=== PATIENT | male | born 1975 | race Caucasian/White ===

== ENCOUNTER 2017-01-30 20:19 | Inpatient (IN) | payer OTHER ==
--- NOTE | ~2017-01-30 | PN ---
Unit #: [id number] #: [id number] Patient: KHADAR HERNANDES [id number] [facility] [address] [place] [address] [id number] I MR#: [id number] NAME: KHADAR HERNANDES. ROOM: 61 Age: 41 Sex: M Admission Date: 01/30/2017 : 1975 Attending Physician: Sabas Viramontes M.D. Admitting Physician: Sabas Viramontes M.D. Primary Care Physician: Primary Care Physician Mercedes WRIGHT NOTES DATE 01/31/2017 DISCUSSION Mr. Lincoln is a 41-year-old male seen on 01/31/2017. The patient interviewed, chart reviewed. Obtained information from nursing staff. The patient was compliant and cooperative. Reported feeling sad, depressed, anxious, nervous. The patient requested for Nicorette gum. Withdrawn, isolative. Complete review of systems unremarkable. MENTAL STATUS EXAMINATION General appearance, the patient dressed casually. Attention span and concentration fair. Oriented to place and person. Mood and affect sad, dysphoric. Speech monotone. Thought process concrete. The patient denied any thoughts of harming self or others or any psychotic symptoms. Recent and remote memory poor. Insight and judgement poor. DIAGNOSES Major depressive disorder recurrent. ASSESSMENT/PLAN Advise to continue with current medication with a plan to increase Paxil to 40 mg daily continue with the other medication same. Also, advise Vistaril 50 mg q.6 h. p.r.n. and desyrel 50 mg q.h.s. p.r.n. If needed consider further adjustment of medication. Dictated by... Ze Holloway/enedelia TD: 02/02/2017 04:53 JOB #: [id number] Unit #: [id number] #: [id number] Patient: KHADAR HERNANDES [facility] PROGRESS NOTES X Sabas Viramontes MD PROGRESS NOTE
--- NOTE | ~2017-01-30 | PN ---
Unit #: [id number] #: [id number] Patient: SALAZAR HERNANDES [id number] [facility] [address] [place] [address] [id number] MR#: [id number] NAME: SALAZAR HERNANDES. ROOM: 61 Age: 41 Sex: M Admission Date: 01/30/2017 : 1975 Attending Physician: Sabas Viramontes M.D. Admitting Physician: Sabas Viramontes M.D. Primary Care Physician: Primary Care Physician No BETZAIDACE PROGRESS NOTES DATE 02/01/2017 DISCUSSION Salazar Hernandes is a 41-year-old male, seen on 02/01/2017. The patient interviewed, chart reviewed, and obtained information from the nursing staff. The patient was compliant and cooperative. Mood sad and dysphoric, flat affect, and guarded. The patient's vital signs, temperature 98.3, pulse 77, and blood pressure 106/72. The patient was participating in group, maintaining safe behavior, making progress, no side effects from medications. REVIEW OF SYSTEMS Complete review of systems unremarkable. MENTAL STATUS EXAMINATION General appearance: Patient casually dressed. Attention span and concentration, fair. Oriented to place and person. Mood and affect, sad and dysphoric. Speech, monotone. Thought process, concrete. Association, the patient denied any thoughts of harming self or others or any psychotic symptoms. Recent and remote memory, poor. Insight and judgment, poor. DIAGNOSIS Mood disorder, NOS. ASSESSMENT/PLAN Advised to continue with the current medication and therapeutic protocol and will monitor response to medication, and make further adjustment of medication. Dictated by... Ze Holloway/april TD: 02/02/2017 09:07 Unit #: [id number] #: [id number] Patient: SALAZAR HERNANDES JOB #: [id number] [facility] PROGRESS NOTES X Sabas Viramontes MD PROGRESS NOTE
--- NOTE | ~2017-01-30 | CO ---
Unit #: [id number] #: [id number] Patient: SALAZAR HERNANDES [id number] [place] [address] [id number] I MR#: [id number] NAME: SALAZAR HERNANDES. ROOM: 61 Age: 41 Sex: M Admission Date: 01/30/2017 : 1975 Attending Physician: Sabas Viramontes M.D. Primary Care Physician: Primary Care Physician No Consultation Date: 02/01/2017 CONSULTATION REPORT HISTORY OF PRESENT ILLNESS Salazar was seen yesterday and on exam, was found to have crackles and wheezing. He had recently been treated for pneumonia, but reported that his cough was getting deeper and he felt like pneumonia was returning. No chest pain or shortness of breath. No muscle aches or chills. No fever. He was started on albuterol inhaler yesterday to be used q.4 hours while awake and Symbicort b.i.d. Chest x-ray yesterday showed within normal limits. Today, he reports that he is feeling better as the cough is improving. He has no complaints. PHYSICAL EXAMINATION CARDIAC: Regular rate and rhythm. No murmur, gallop, or rub. RESPIRATORY: Clear to auscultation bilaterally. ASSESSMENT AND PLAN Lung congestion. We will continue with inhalers as previously ordered. Please notify if fever, body aches, chills, or worsening symptoms are present. Dictated by... Cassy Novak A.P.R.N. for Ze Hutchins/alfonso TD: 02/01/2017 15:52 JOB #: [id number] CONSULTATION REPORT X CASSY BRUCE APRN X CONSULTATION REPORT
--- NOTE | ~2017-01-30 | CR63 ---
[facility] A Service of [facility] RADIOLOGY TEXT RESULTS PATIENT: KHADAR HERNANDES LOCATION: [facility] P261-1 : [birth year] UNIT #: [id number] AGE: [address]: Sabas Viramontes MD SEX: M ORDER DR: [id number] [facility] [address] [facility] [place], [place] [address] [id number] I MR#: [id number] Acc #: [id number] NAME: KHADAR HERNANDES : 1975 SEX: M STUDY DATE/TIME: 01/31/2017 12:52 UNIT: [facility] ROOM: [facility] STUDY DESCRIPTION: CR Chest 2 View Attending Physician: Sabas Viramontes M.D. Ordering Physician: Sabas Viramontes M.D. Primary Care Physician: Primary Care Physician No MEDICAL IMAGING REPORT This report is preliminary unless electronic signature is present EXAM PA and lateral chest HISTORY Follow up pneumonia, diagnosed in November and December. FINDINGS A PA and lateral view of the chest were obtained. The heart size and vascularity are normal. The lungs are clear. Bones are unremarkable. IMPRESSION No active disease. Dictated by... Frank Simmons M.D. THIS IS AN ELECTRONICALLY VERIFIED REPORT Frank Simmons M.D. at 02/01/2017 3:07 PM Klaudia TD: 02/01/2017 06:36 JOB #: [id number] MEDICAL IMAGING REPORT COPY
--- NOTE | ~2017-01-30 | DS ---
Unit #: [id number] #: [id number] Patient: KHADAR HERNANDES [id number] [place] [address] [id number] MR#: [id number] NAME: KHADAR HERNANDES. ROOM: 61 Age: 41 Sex: M Admission Date: 01/30/2017 : 1975 Discharge Date: 02/02/2017 Attending Physician: Sabas Viramontes M.D. Primary Care Physician: Primary Care Physician No DISCHARGE SUMMARY REASON FOR ADMISSION Depression. DIAGNOSTIC STUDIES LABORATORY RESULTS: Remarkable for a BUN of 8 and total protein 5.7. HOSPITAL COURSE The patient was admitted to inpatient unit on 01/30/2017 and discharged on 02/02/2017. The patient was treated on the inpatient unit with group therapy, individual therapy, medication management, and structured milieu. The patient responded well with the above modalities of treatment. Subsequently, the patient was discharged with a plan to follow up in outpatient program. DISCHARGE MEDICATIONS Paxil 40 mg daily for depression. DISCHARGE DIAGNOSES Psychiatric: 1. Major depressive disorder, recurrent, severe. 2. Anxiety disorder, not otherwise specified. Secondary diagnosis: Deferred. Medical diagnoses: Recent pneumonia, hypertension, chronic pain. Stressors: Psychosocial stressors. DISCHARGE INSTRUCTIONS The patient is to follow up in outpatient clinic as per social services coordinator. CONDITION ON DISCHARGE The patient was pleasant and cooperative. Denied any psychotic symptom or any suicidal ideation. PROGNOSIS Guarded. DIET AND ACTIVITY As tolerated. Dictated by... Sabas Viramontes M.D. Unit #: [id number] #: [id number] Patient: KHADAR HERNANDES SZC/modl TD: 02/02/2017 21:21 JOB #: [id number] DISCHARGE SUMMARY X Sabas Viramontes MD X DISCHARGE SUMMARY
--- NOTE | ~2017-01-30 | PA ---
Unit #: [id number] #: [id number] Patient: KHADAR HERNANDES [id number] [place] [address] [id number] MR#: [id number] NAME: KHADAR HERNANDES ROOM: P261 Age: 41 Sex: M Admission Date: 01/30/2017 : 1975 Date of Assessment: Attending Physician: Sabas Viramontes M.D. Admitting Physician: Sabas Viramontes M.D. Primary Care Physician: Primary Care Physician No PSYCHIATRIC ASSESSMENT INFORMANTS The patient reliability, fair informant and chart reliability, good. CHIEF COMPLAINT Suicidal ideation. HISTORY OF PRESENT ILLNESS Mr. Lincoln is a 41-year-old male, seen on 2-[facility] with the above-mentioned complaint. The patient reported feeling sad, depressed, and suicidal ideation. The patient presented due to increase in depression and feeling sad, depressed, and suicidal. The patient denied any homicidal ideation, but reported suicidal ideation. Denied any plans. The patient reported having severe anxiety, currently taking medication for that. The patient denied any recent use of drugs or alcohol. The patient reported that he feels worse at night because he is awake and everything else is asleep. The patient agitated about how his family treats him. The patient was somewhat guarded and paranoid, but having suicidal ideation and needing inpatient admission at this time for psychiatric stabilization. PAST PSYCHIATRIC HISTORY Remarkable for history of previous treatment. Details unknown at this time. FAMILY HISTORY AND SOCIAL HISTORY The patient's family psychiatric illness is remarkable for history of substance abuse in the family. No details known at this time. No known history of any abuse. No legal charges. MEDICAL HISTORY Remarkable for history of hypertension and chronic pain. ALLERGIES No known drug allergies. MEDICATION HISTORY The patient is on Neurontin 300 mg t.i.d., Paxil 20 mg 3 tablets daily, lisinopril 50 mg b.i.d., Valium 10 mg t.i.d., Lipitor 10 mg in the morning, and Percocet 10 mg q.i.d. for chronic pain. SUBSTANCE ABUSE HISTORY History of alcohol abuse at age 13, last use 10/2017 and tobacco use, age of onset 13. Unit #: [id number] #: [id number] Patient: KHADAR HERNANDES REVIEW OF SYSTEMS HEENT: Eyes, clear. Ears, nose, mouth, and throat; clear. CARDIOVASCULAR: Unremarkable. RESPIRATORY: Unremarkable. GI: Unremarkable. : Unremarkable. SKIN: Unremarkable. LYMPH NODE: Unremarkable. NEUROLOGIC: Unremarkable. ENDOCRINE: Unremarkable. HEMATOLOGIC: Unremarkable. ALLERGIC/IMMUNOLOGIC: Unremarkable. MUSCULOSKELETAL: Muscle strength and tone, no atrophy or abnormal movement. Gait normal. MENTAL STATUS EXAMINATION CONSTITUTIONAL: Measurement of vital signs; temperature 98.0, heart rate 72, respiratory rate 16, blood pressure 122/72, height 6 feet, and weight 160 pounds. GENERAL APPEARANCE: The patient dressed casually. The patient did not show any facial deformity. MUSCULOSKELETAL: Please see above. PSYCHIATRIC EXAMINATION Description of speech; regular rate, normal volume, and normal articulation. Description of thought process, goal directed. Description of association, intact. Description of abnormal psychotic thinking; denied any hallucination or delusions, but guarded, paranoid, and suicidal ideation. Denied any homicidal ideation. Description of the patient's judgment: Concerning everyday activity, poor. Social situation, poor. Concerning psychiatric condition, poor. Complete mental status examination; oriented in time, place, and person. Recent and remote memory, fair. Attention span and concentration, fair. Language, able to name object and repeat phrases. Fund of knowledge, aware of current event and passive vocabulary intact. Mood and affect, sad and dysphoric. Insight and judgment, fair to poor. ASSETS AND LIABILITIES Assets, the patient is articulate and able to take care of his ADL. Liability, history of depression. ADMITTING DIAGNOSES Psychiatric: Major depressive disorder, recurrent, severe, F33.2 and anxiety disorder, not otherwise specified. Secondary diagnosis: Deferred. Medical diagnoses: Recent pneumonia, hypertension, and chronic pain. Stressors: Psychosocial stressors. PSYCHIATRIC PLAN AND TREATMENT GOAL AND DISCHARGE PLAN 1. Advised to admit the patient on the inpatient unit. Provide safe, supportive, and structured environment. 2. Ordered labs; CBC, CMP, UA, and UDS. 3. Precaution for self-harm. SC1 precaution. Unit #: [id number] #: [id number] Patient: KHADAR HERNANDES 4. The patient to attend all the programing on the inpatient unit, group therapy, individual therapy, and if needed, family therapy. 5. The patient to continue with home medication. If needed, consider further adjustment of medication. TREATMENT GOAL To attain euthymic mood, gain insight into his problem, and learn coping skills. DISCHARGE PLAN Plan to stabilize the patient and consider followup in outpatient program. ESTIMATED LENGTH OF STAY 5 to 10 days. Dictated by... Ze Holloway/lafonso TD: 02/01/2017 13:37 JOB #: [id number] PSYCHIATRIC ASSESSMENT X Sabas Viramontes MD X PSYCHIATRIC ASSESSMENT
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
--- NOTE | ~2017-01-30 | CO ---
Unit #: [id number] #: [id number] Patient: SALAZAR HERNANDES [id number] [place] [address] [id number] MR#: [id number] NAME: SALAZAR HERNANDES ROOM: P261 Age: 41 Sex: M Admission Date: 01/30/2017 : 1975 Attending Physician: Sabas Viramontes M.D. Primary Care Physician: Primary Care Physician No Consultation Date: 01/31/2017 CONSULTATION REPORT HISTORY OF PRESENT ILLNESS Salazar reports recently having been diagnosed with pneumonia in 11/2016. He was treated then with Levaquin in 12/2016. His symptoms are unresolved. He went to the ER and was treated with amoxicillin. Since then, his cough has continued. He does have some sputum production and some shortness of air. No chest pain. No muscle aches or chills and no fever. He has no other complaints. PHYSICAL EXAMINATION CARDIAC: Regular rate and rhythm. No murmur, gallop, or rubs. RESPIRATORY: Bilateral crackles and wheezing in all lobes. ASSESSMENT AND PLAN History of pneumonia. We will obtain chest x-ray and begin Symbicort and ProAir. Depending on chest x-ray results, may need to add an antibiotic. Dictated by... Cassy Novak A.P.R.N. for Ze Hutchins/alfonso TD: 01/31/2017 23:50 JOB #: [id number] CONSULTATION REPORT X CASSY BRUCE APRN X CONSULTATION REPORT
[2017-01-31 11:32] LABS: BASOPHIL% 0.1 % (0-2.5); EOSINOPHIL# 0.1 X10e3 (0-0.7); EOSINOPHIL% 1.3 % (0.0-7.0); HEMATOCRIT 41.4 % (38.0-50.0); LYMPHOCYTE# 3.8 X10e3 (1.0-3.5); LYMPHOCYTE% 43.5 % (17.0-45.0); MEAN CELL VOLUME 94.3 FL (83-96); MEAN CORPUSCULAR HEMOGLOBIN 31.8 PG (28-34); MEAN CORPUSCULAR HGB CONC 33.8 g/dL (30-36); MEAN PLATELET VOLUME 9.2 FL (6.5-11.5); MONOCYTE# 0.8 X10e3 (0-1.0); MONOCYTE% 8.9 % (3.0-12.0); NEUTROPHIL% 46.2 % (40-75); PLATELET COUNT 186 X10e3 (140-420); RED BLOOD COUNT 4.39 X10e (3.90-5.60); WHITE BLOOD COUNT 8.8 X10e3 (4.0-10.5)
[2017-01-31 11:34] LABS: DIFF IND NO
[2017-01-31 11:54] LABS: ALBUMIN SERUM 3.2 g/dL (3.5-5.0); ALKALINE PHOSPHATASE 54 U/L (32-92); ALT (SGPT) 12 U/L (10-40); AST (SGOT) 14 U/L (10-42); BILIRUBIN,TOTAL 0.3 mg/dL (0.2-2.0); BLOOD UREA NITROGEN 8 mg/dL (9-23); BUN/CREATININE RATIO 6.15; CALCIUM SERUM 8.5 mg/dL (8.4-10.2); CARBON DIOXIDE 30 mmol/L (22-31); CHLORIDE 104 mmol/L (100-111); CREATININE SERUM 1.3 mg/dL (0.6-1.4); GLOM FILT RATE Estimated ABOVE60 mL/min (>60); GLUCOSE FASTING 80 mg/dL (70-110); POTASSIUM 4.5 mmol/L (3.5-5.1); PROTEIN TOTAL SERUM 5.7 g/dL (6.0-8.3); SODIUM 139 mmol/L (135-145)
== END 2017-02-02 15:00 | disposition home or self-care (01) | DRG 885 ==
LOC: P2L 20:19
PROVIDERS: Psychiatry & Neurology Psychiatry
DX: F33.2 Major depressive disorder, recurrent severe without psychotic features (principal); I10 Essential (primary) hypertension; F41.9 Anxiety disorder, unspecified; G89.29 Other chronic pain; F17.210 Nicotine dependence, cigarettes, uncomplicated; R09.89 Other specified symptoms and signs involving the circulatory and respiratory systems
CPT/HCPCS: 71020; 80053; 85025